=== PATIENT | female | born 2000 | race Hispanic/Latino ===

== ENCOUNTER 2020-02-08 16:59 | Emergency (ER) | payer BC, OTHER ==
--- OUTSIDE RECORDS SUMMARY | 2020-02-08 17:02 | XMS REPORT | Continuity of Care Document ---
:[address] [facility] t Address [address] [place] [address] Dr. Leal [address] [place] [id number] Care Team Providers Name Role Phone Unavailable Unavailable Unavailable Payers Payer Name Policy Type Policy Number Effective Date Expiration Date S ource Problems This patient has no known problems. Allergies, Adverse Reactions, Alerts This patient has no known allergies or adverse reactions. Medications This patient has no known medications. Procedures This patient has no known procedures. Results This patient has no known results.
[2020-02-08 18:46] LABS: Absolute Lymphocytes (CBC) 1.7 K/uL (0.7-4.9); Hematocrit 35.9 % (36.0-45.0); Lymphocytes % 19.6 % (15.3-44.8); MPV 11.6 fL (7.6-11.3); RBC Red Blood Cell Count 4.67 M/uL (3.86-4.86)
--- NOTE | 2020-02-08 19:13 | RAD REPORT ---
EXAM DESCRIPTION: US - Transvaginal OB - 02/08/2020 7:00 pm CLINICAL HISTORY: vaginal bleeding, pelvic pain COMPARISON: OB Limited dated 01/06/2017 FINDINGS: No IUP is identified within a normal size uterus. Endometrial stripe appears thickened linda suring up to 13 mm. The maternal adnexa and ovaries are within normal limits. Normal Doppler blood flow was demonstrated to both ovaries. IMPRESSION: No IUP is identified. In the setting of positive HCG level, this would be compatible wit h of unknown location. Serial HCG levels and follow-up pelvic sonography would be recommend ed in 7-10 days.
[2020-02-08 19:33] LABS: BUN Blood Urea Nitrogen 8 mg/dL (7-18); Bicarbonate 23 mmol/L (21-32); Glucose Level 82 mg/dL (74-106); HCG, Quantitative 21707 mIU/mL (1-3); Potassium 3.6 mmol/L (3.5-5.1); Sodium Level 140 mmol/L (136-145)
--- NOTE | 2020-02-08 19:48 | ER ---
Nurse's Notes [facility] Name: Franck Dominguez Age: 20 yrs Sex: Female : 2000 Arrival Date: 02/08/2020 Time: 17:06 Bed 13 Private MD: Diagnosis: Threatened Presentation: 02/07 17:15 Chief complaint: Patient states: 7 wk . Heavy vaginal bleed with clots <1 hr ca1 ago. Spotting since last night. Abdominal cramps. Coronavirus screen: Patient denies a cough. Patient denies shortness of breath or difficulty breathing. Patient denies measured and/or subjective temperature greater than 100.4F prior to today's visit. Patient denies travel on a cruise ship or to a country the [facility] currently lists as an affected area. Patient denies contact with known and/or suspected case of COVID-19. Proceed with normal triage. Ebola Screen: Patient negative for fever greater than or equal to 101.5 degrees Fahrenheit, and additional compatible Ebola Virus Disease symptoms Patient denies exposure to infectious person. Patient denies travel to an Ebola-affected area in the 21 days before illness onset. No symptoms or risks identified at this time. Initial Sepsis Screen: Does the patient meet any 2 criteria? No. Patient's initial sepsis screen is negative. Does the patient have a suspected source of infection? No. Patient's initial sepsis screen is negative. Risk Assessment: Do you want to hurt yourself or someone else? Patient reports no desire to harm self or others. Onset of symptoms was February 08, 2020. 17:15 Method Of Arrival: Ambulatory ca1 17:15 Acuity: FREDY 3 ca1 Triage Assessment: 17:48 General: Appears in no apparent distress. sad, tearful. Pain: Complains of pain in back ks7 and abdomen Pain currently is 4 out of 10 on a pain scale. Quality of pain is described as aching, crampy, Pain began 4 hours ago. : Reports vaginal bleeding that is bright red, with clots, pt is 7 weeks PG, thinks she is having a miscarriage. 20:09 General: Behavior is calm, cooperative. 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 - Social history:: Smoking status: Patient denies any tobacco usage or history of. Screenin:50 Abuse screen: Denies threats or abuse. Denies injuries from another. Nutritional ks7 screening: No deficits noted. Tuberculosis screening: No symptoms or risk factors identified. Fall Risk None identified. Assessment: 17:50 Obstetrical Assessment: Patient reports abdominal cramping, back pain, heavy bleeding ks7 this AM. thinks she is having miscarriage. Vital Signs: 17:15 BP 136 / 84; Pulse 89; Resp 18 S; Temp 98.1(TE); Pulse Ox 100% on R/A; Weight 75.3 kg ca1 (R); Height 5 ft. 1 in. (154.94 cm) (R); Pain 3/10; 18:39 BP 123 / 78; Pulse 80; Resp 16; Temp 98(TE); Pulse Ox 100% on R/A; Pain 4/10; ks7 19:23 BP 131 / 68; Pulse 78; Resp 18; Temp 98.2(TE); Pulse Ox 98% on R/A; Pain 3/10; ks7 20:07 Pulse Ox 99% ; Pain 0/10; ks7 20:08 BP 114 / 80; Pulse 72; Resp 18; Temp 98.7(TE); Pulse Ox 99% ; Pain 0/10; ks7 17:15 Body Mass Index 31.37 (75.30 kg, 154.94 cm) ca1 Vitals: 20:09 Heart Tones 0. ks7 ED Course: 17:06 Patient arrived in ED. mr 17:18 Triage completed. ca1 17:19 Arm band placed on right wrist. [facility] 17:28 Chuy Kenny PA is PHCP. [facility] 17:28 James Patel MD is Attending Physician. [facility] 17:40 Idalia Christy, KOMAL is Primary Nurse. ks7 17:50 Patient has correct armband on for positive identification. Placed in gown. Bed in low ks7 position. Call light in reach. Side rails up X2. 17:50 No provider procedures requiring assistance completed. Patient did not have IV access ks7 during this emergency room visit. 18:33 Quantitative Hcg Sent. ks7 18:33 Abo/rh Typing Sent. ks7 18:34 Inserted saline lock: 20 gauge in left antecubital area, using aseptic technique. ks7 18:43 Quantitative Hcg Sent. ks7 18:43 Abo/rh Typing Sent. ks7 19:00 Transvaginal OB In Process Unspecified. EDMS 19:23 Urine --Ancillary (enter results) Sent. ks7 19:23 Urine Dipstick--Ancillary (enter results) Sent. ks7 20:06 No apparent distress. ks7 20:06 IV discontinued, intact, bleeding controlled, No redness/swelling at site. Pressure ks7 dressing applied. Administered Medications: 20:00 Drug: morphine 4 mg Route: IVP; Site: left antecubital; ks7 20:07 Follow up: Pulse Ox 99% ; Pain 0/10 Adult ks7 Point of Care Testing: Urine : 18:00 hCG Reading: Positive; Control Reading: Positive; ks7 Outcome: 19:46 Discharge ordered by . luis felipe 20:09 Discharged to home ambulatory, with family. ks7 20:09 Condition: stable 20:09 Discharge instructions given to patient, Instructed on discharge instructions, follow up and referral plans. Demonstrated understanding of instructions, follow-up care. 20:10 Patient left the ED. ks7 Signatures: Dispatcher [employer] EDMS Chuy Kenny PA PA jmm Rivera, Mary mr Joann Peguero RN RN ca1 Songcuan, Kathleen, RN RN ks7
--- NOTE | 2020-02-08 19:48 | EDPHYS ---
Physician Documentation [facility] Name: Franck Dominguez Age: 20 yrs Sex: Female : 2000 Arrival Date: 02/08/2020 Time: 17:06 Bed 13 Private MD: ED Physician James Patel HPI: 02/07 17:30 This 20 yrs old Female presents to ER via Ambulatory with complaints of jmm Vaginal Bleeding, + Preg <12wks. 17:30 The estimated gestational age is 7 weeks. course: care: at a clinic. jmm This is a 20 year old female that presents to the ED with complaints of vaginal bleeding beginning yesterday worsening today. Patient states having a confirmed IUP 2 weeks prior. . 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 - Social history:: Smoking status: Patient denies any tobacco usage or history of. ROS: 17:30 Constitutional: Negative for fever, chills, and weight loss, Cardiovascular: Negative jmm for chest pain, palpitations, and edema, Respiratory: Negative for shortness of breath, cough, wheezing, and pleuritic chest pain, Abdomen/GI: Negative for abdominal pain, nausea, vomiting, diarrhea, and constipation. 17:30 : Positive for vaginal bleeding. 17:30 All other systems are negative. Exam: 17:30 Constitutional: This is a well developed, well nourished patient who is awake, alert, jmm and in no acute distress. Head/Face: atraumatic. Eyes: EOMI, no conjunctival erythema appreciated ENT: Moist Mucus Membranes Neck: Trachea midline, Supple Chest/axilla: Normal chest wall appearance and motion. Cardiovascular: Regular rate and rhythm. No edema appreciated Respiratory: Normal respirations, no respiratory distress appreciated Abdomen/GI: Non distended, soft Back: Normal ROM Skin: General appearance color normal MS/ Extremity: Moves all extremities, no obvious deformities appreciated, no edema noted to the lower extremities Neuro: Awake and alert, normal gait Psych: Behavior is normal, Mood is normal, Patient is cooperative and pleasant Vital Signs: 17:15 BP 136 / 84; Pulse 89; Resp 18 S; Temp 98.1(TE); Pulse Ox 100% on R/A; Weight 75.3 kg ca1 (R); Height 5 ft. 1 in. (154.94 cm) (R); Pain 3/10; 18:39 BP 123 / 78; Pulse 80; Resp 16; Temp 98(TE); Pulse Ox 100% on R/A; Pain 4/10; ks7 19:23 BP 131 / 68; Pulse 78; Resp 18; Temp 98.2(TE); Pulse Ox 98% on R/A; Pain 3/10; ks7 20:07 Pulse Ox 99% ; Pain 0/10; ks7 20:08 BP 114 / 80; Pulse 72; Resp 18; Temp 98.7(TE); Pulse Ox 99% ; Pain 0/10; ks7 17:15 Body Mass Index 31.37 (75.30 kg, 154.94 cm) ca1 MDM: 18:25 Patient medically screened. [facility] 19:45 Data reviewed: vital signs, nurses notes. Counseling: I had a detailed discussion with luis felipe the patient and/or guardian regarding: the historical points, exam findings, and any diagnostic results supporting the discharge/admit diagnosis, radiology results, the need for outpatient follow up, to return to the emergency department if symptoms worsen or persist or if there are any questions or concerns that arise at home. ED course: No IUP identified. Most likely spontaneous . Patient is advised to follow up with OBGYN for further evaluation and otherwise given strict return precautions. Patient understood and agrees with the plan of care. . 02/07 17:29 Order name: Quantitative Hcg; Complete Time: 19:34 [facility] 02/07 17:29 Order name: Abo/rh Typing; Complete Time: 19:27 [facility] 02/07 17:29 Order name: Basic Metabolic Panel; Complete Time: 19:34 [facility] 02/07 17:29 Order name: CBC with Diff; Complete Time: 19:08 [facility] 02/07 18:52 Order name: Urine Dipstick--Ancillary (enter results) bd 02/07 18:52 Order name: Urine --Ancillary (enter results) 02/07 17:29 Order name: Urine Test (obtain specimen); Complete Time: 18:32 [facility] 02/07 17:29 Order name: IV Saline Lock; Complete Time: 18:33 [facility] 02/07 17:29 Order name: Labs collected and sent; Complete Time: 18:33 [facility] 02/07 17:29 Order name: NPO; Complete Time: 18:33 [facility] 02/07 17:29 Order name: Urine Dipstick-Ancillary (obtain specimen); Complete Time: 18:33 [facility] 02/07 19:00 Order name: Transvaginal OB; Complete Time: 19:27 EDMS Administered Medications: 20:00 Drug: morphine 4 mg Route: IVP; Site: left antecubital; ks7 20:07 Follow up: Pulse Ox 99% ; Pain 0/10 Adult ks7 Point of Care Testing: Urine : 18:00 hCG Reading: Positive; Control Reading: Positive; ks7 Disposition: 02/08 08:30 Co-signature as Attending Physician, James Patel MD. rn Disposition: 02/08/20 19:46 Discharged to Home. Impression: Threatened . - Condition is Stable. - Discharge Instructions: Threatened Miscarriage, Vaginal Bleeding During , First Trimester, Pelvic Rest. - Medication Reconciliation Form, Thank You Letter, Antibiotic Education, Prescription Opioid Use form. - Follow up: Private Physician; When: 1 - 2 days; Reason: Recheck today's complaints, Continuance of care, Repeat Beta-HCG (48 Hours), Re-evaluation by your physician. Signatures: Dispatcher [employer] [facility] Chuy Kenny PA PA James Enamorado MD MD rn Acob, Joann RN Idalia Durand RN RN ks7 Corrections: (The following items were deleted from the chart) 02/07 19:00 17:29 OB Limited+US.RAD.BRZ ordered. [facility] 20:10 19:46 02/08/2020 19:46 Discharged to Home. Impression: Threatened . Condition ks7 is Stable. Forms are Medication Reconciliation Form, Thank You Letter, Antibiotic Education, Prescription Opioid Use. Follow up: Private Physician; When: 1 - 2 days; Reason: Recheck today's complaints, Continuance of care, Repeat Beta-HCG (48 Hours), Re-evaluation by your physician. luis felipe
[2020-02-08] MEDS ORDERED: MORPHINE 4 MG/ML SYR ONE (20:06)
[2020-02-08 20:27] LABS: Urine Blood 3+ (NEG); Urine Glucose NEGATIVE (NEG); Urine Protein 2+ (NEG); Urine Specific Gravity >1.030 (1.005-1.030); Urine pH 5.5 (5.0-7.0)
[2020-02-09 11:20] VITALS: O2SAT 99
[2020-02-09 11:22] VITALS: BP 114/80; TEMP 98.7
== END 2020-02-08 20:10 | disposition home or self-care (01) ==
LOC: ER 16:59
DX: O20.0 Threatened abortion (principal); Z3A.01 Less than 8 weeks gestation of pregnancy
CPT/HCPCS: 36415; 76817; 80048; 81003; 81025; 84702; 85025; 86900; 86901; 96374; 99284

== ENCOUNTER 2022-06-28 09:32 | Emergency (ER) | payer BC ==
--- OUTSIDE RECORDS SUMMARY | 2022-06-28 09:35 | XMS REPORT | Continuity of Care Document ---
:2000 Author Organization [facility] t Address [address] Leal [address] [place] [address] Care Team Providers Name Role Phone [place] Turner Attending Clinician Unavailable Payers Payer Name Policy Type Policy Number Effective Date Expiration Date S ource Problems This patient has no known problems. Allergies, Adverse Reactions, Alerts This patient has no known allergies or adverse reactions. Medications This patient has no known medications. Procedures This patient has no known procedures. Encounters Start End Encounter Admission Attending Care Care Encounter Source Date/Time Date/Time Type Type Clinicians Facility Department ID 2020-02-09 2020-02-09 Outpatient CONY Turner RADI [id number] [facility] 11:00:00 11:00:00 [place] 40 [facility] s [facility] Results This patient has no known results.
[2022-06-28 12:34] LABS: Absolute Lymphocytes (CBC) 1.4 K/uL (0.7-4.9); Hematocrit 39.3 % (36.0-45.0); Lymphocytes % 25.5 % (15.3-44.8); MCV 82.8 fL (80-100); MPV 10.1 fL (7.6-11.3); RBC Red Blood Cell Count 4.74 M/uL (3.86-4.86)
--- NOTE | 2022-06-28 12:39 | RAD REPORT ---
EXAM DESCRIPTION: US - Transvaginal OB - 06/28/2022 11:34 am CLINICAL HISTORY: VAGINAL BLEEDING COMPARISON: Transvaginal OB dated 02/08/2020 FINDINGS: Endovaginal sonography exam was performed and shows normal size uterus with no myometrial mass. Endometrium measures up to 12-14 mm in thickness. The endometrium- myometrium interface is pres erved. There is no gestational sac, sac remnant or other focal finding of the endometrial cavity. Normal sized ovaries are identified. Doppler evaluation shows normal blood flow in the ovarian stroma . No dominant solid or cystic ovarian or adnexal abnormality. No abnormal fluid or blood in the cul de sac. IMPRESSION: No gestational sac, sac remnant or other focal endometrial finding. Endometrium measures up to 12-14 mm in thickness. No ovarian or adnexal abnormalities found.
[2022-06-28 12:49] LABS: Potassium 3.5 mmol/L (3.5-5.1)
[2022-06-28 14:08] LABS: Urine Blood 3+ (Negative); Urine Glucose Negative (Negative); Urine Protein 2+ (Negative)
[2022-06-28 14:32] LABS: Urine RBC >50 /HPF (None Seen)
--- NOTE | 2022-06-28 14:59 | ER ---
Nurse's Notes [facility] Name: Franck Dominguez Age: 22 yrs Sex: Female : 2000 Arrival Date: 06/28/2022 Time: 09:38 Bed 12 Private MD: Diagnosis: Missed Presentation: 06/28 10:15 Chief complaint: Patient states: Light vaginal bleeding that began last night and now ss feels like more of the beginning of a period with light cramping. Pt reports she is approximately 7 weeks . Coronavirus screen: Client denies travel out of the [place] in the last 14 days. Ebola Screen: Patient denies exposure to infectious person. Patient denies travel to an Ebola-affected area in the 21 days before illness onset. Initial Sepsis Screen: Does the patient meet any 2 criteria? No. Patient's initial sepsis screen is negative. Does the patient have a suspected source of infection? No. Patient's initial sepsis screen is negative. Risk Assessment: Do you want to hurt yourself or someone else? Patient reports no desire to harm self or others. Onset of symptoms was June 27, 2022. 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 - Social history:: Smoking status: Patient denies any tobacco usage or history of. - Family history:: not pertinent. Screenin:15 Abuse screen: Denies threats or abuse. Denies injuries from another. Nutritional kb3 screening: No deficits noted. Tuberculosis screening: No symptoms or risk factors identified. Fall Risk None identified. Assessment: 12:15 Obstetrical Assessment: General assessment: awake and alert, skin warm and dry, kb3 respirations even and unlabored. Reassessment: Patient appears in no apparent distress at this time. No changes from previously documented assessment. General: Appears in no apparent distress. comfortable, Behavior is calm, cooperative, Received care of pt from the [facility]. Pt reporting that she is approximately 6-7 weeks based on the date of her last menstrual cycle and began experiencing bright red blood when she wipes with mild lower abdominal cramping yesterday evening. A0. 12:15 Pain: Complains of pain in suprapubic area, right lower quadrant and left lower kb3 quadrant Pain does not radiate. Pain currently is 3 out of 10 on a pain scale. Quality of pain is described as crampy, Pain began 1 day ago. : Reports cramping, vaginal bleeding that is Denies burning with urination, discharge, inability to void. Vital Signs: 10:15 BP 131 / 93; Pulse 82; Resp 14; Temp 97.4(TE); Pulse Ox 100% on R/A; Height 5 ft. 1 in. ss (154.94 cm); Pain /10; 12:15 BP 123 / 91; Pulse 78; Resp 18; Pulse Ox 99% ; kb3 15:15 BP 115 / 78; Pulse 82; Resp 18; Pulse Ox 99% ; kb3 Vitals: 12:15 Heart Tones deferred. kb3 ED Course: 09:38 Patient arrived in ED. as 09:51 Noe Quevedo MD is Attending Physician. rt 10:17 Triage completed. ss 10:18 Arm band placed on right wrist. ss 11:19 US Transvaginal Ob In Process Unspecified. EDMS 12:15 Patient has correct armband on for positive identification. Bed in low position. Call kb3 light in reach. Warm blanket given. 12:15 No provider procedures requiring assistance completed. Inserted saline lock: 22 gauge kb3 in right antecubital area, using aseptic technique. Blood collected. 12:26 Abo/rh Typing Sent. kb3 12:26 Basic Metabolic Panel Sent. kb3 12:26 CBC with Diff Sent. kb3 12:26 Quantitative Hcg Sent. kb3 14:10 Urine collected: clean catch specimen, blood tinged. tm3 15:02 Anuradha García, RN is Primary Nurse. kb3 15:15 IV discontinued, intact, bleeding controlled, No redness/swelling at site. Pressure kb3 dressing applied. Administered Medications: No medications were administered Medication: 12:15 VIS not applicable for this client. kb3 Point of Care Testing: Urine : 14:30 hCG Reading: Positive; Control Reading: Positive; kb3 Outcome: 14:58 Discharge ordered by . rt 15:15 Discharged to home ambulatory, with family. kb3 15:15 Condition: stable kb3 15:15 Discharge instructions given to patient, family, Instructed on discharge instructions, follow up and referral plans. medication usage, Demonstrated understanding of instructions, follow-up care, medications. 15:40 Patient left the ED. kb3 Signatures: Dispatcher [employer] EDSC Durga Eddie tm3 Anu Dominguez Shelby, KOMAL RN ss Anuradha García RN RN kb3 Noe Quevedo MD MD rt Corrections: (The following items were deleted from the chart) 10:18 10:18 PMHx: None; ss ss
--- NOTE | 2022-06-28 14:59 | EDPHYS ---
Physician Documentation [facility] Name: Franck Dominguez Age: 22 yrs Sex: Female : 2000 Arrival Date: 06/28/2022 Time: 09:38 Bed 12 Private MD: ED Physician Noe Quevedo HPI: 06/28 10:28 This 22 yrs old Female presents to ER via Ambulatory with complaints of rt Vaginal Bleeding, + Preg <12wks. 10:28 The patient presents to the emergency department with vaginal bleeding, that is light, rt with no clots. The estimated gestational age is 7 weeks. The patient has experienced a previous episode. Presents to the ED with vaginal bleeding starting yesterday. Initially started spotting but has been increasing to about the level for period. The patient states that she is about 7 weeks , has not had a confirmatory ultrasound. Reports mild lower abdominal cramping but denies other acute complaints at this time, symptoms are moderate severity, no other aggravating or alleviating factors.. 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 - Social history:: Smoking status: Patient denies any tobacco usage or history of. - Family history:: not pertinent. ROS: 15:07 : Positive for vaginal bleeding, Negative for burning with urination. rt 19:13 Constitutional: Negative for fever, chills, and weight loss, Eyes: Negative for injury, rt pain, redness, and discharge, ENT: Negative for injury, pain, and discharge, Neck: Negative for injury, pain, and swelling, Cardiovascular: Negative for chest pain, palpitations, and edema, Respiratory: Negative for shortness of breath, cough, wheezing, and pleuritic chest pain, Abdomen/GI: Negative for abdominal pain, nausea, vomiting, diarrhea, and constipation, MS/Extremity: Negative for injury and deformity, Skin: Negative for injury, rash, and discoloration, Neuro: Negative for headache, weakness, numbness, tingling, and seizure, Psych: Negative for depression, anxiety, suicide ideation, homicidal ideation, and hallucinations. Exam: 19:13 Constitutional: This is a well developed, well nourished patient who is awake, alert, rt and in no acute distress. Head/Face: Normocephalic, atraumatic. Eyes: Pupils equal round and reactive to light, extra-ocular motions intact. Lids and lashes normal. Conjunctiva and sclera are non-icteric and not injected. Cornea within normal limits. Periorbital areas with no swelling, redness, or edema. ENT: Nares patent. No nasal discharge, no septal abnormalities noted. Tympanic membranes are normal and external auditory canals are clear. Oropharynx with no redness, swelling, or masses, exudates, or evidence of obstruction, uvula midline. Mucous membranes moist. Neck: Trachea midline, no thyromegaly or masses palpated, and no cervical lymphadenopathy. Supple, full range of motion without nuchal rigidity, or vertebral point tenderness. No Meningismus. Chest/axilla: Normal chest wall appearance and motion. Nontender with no deformity. No lesions are appreciated. Cardiovascular: Regular rate and rhythm with a normal S1 and S2. No gallops, murmurs, or rubs. Normal PMI, no JVD. No pulse deficits. Respiratory: Lungs have equal breath sounds bilaterally, clear to auscultation and percussion. No rales, rhonchi or wheezes noted. No increased work of breathing, no retractions or nasal flaring. Abdomen/GI: Soft, non-tender, with normal bowel sounds. No distension or tympany. No guarding or rebound. No evidence of tenderness throughout. Skin: Warm, dry with normal turgor. Normal color with no rashes, no lesions, and no evidence of cellulitis. MS/ Extremity: Pulses equal, no cyanosis. Neurovascular intact. Full, normal range of motion. Neuro: Awake and alert, GCS 15, oriented to person, place, time, and situation. Cranial nerves II-XII grossly intact. Motor strength 5/5 in all extremities. Sensory grossly intact. Cerebellar exam normal. Normal gait. Psych: Awake, alert, with orientation to person, place and time. Behavior, mood, and affect are within normal limits. Vital Signs: 10:15 BP 131 / 93; Pulse 82; Resp 14; Temp 97.4(TE); Pulse Ox 100% on R/A; Height 5 ft. 1 in. ss (154.94 cm); Pain /10; 12:15 BP 123 / 91; Pulse 78; Resp 18; Pulse Ox 99% ; kb3 15:15 BP 115 / 78; Pulse 82; Resp 18; Pulse Ox 99% ; kb3 MDM: 10:19 Patient medically screened. rt 19:13 Differential diagnosis: threatened Ab, complete Ab, ectopic . Data reviewed: rt vital signs, nurses notes, old medical records, lab test result(s), EKG, radiologic studies. ED course: Patient presents to the ED with first trimester vaginal bleeding. The symptoms do seem to be improving in the ED. There is no ectopic identified, beta-hCG is above discriminatory zone. Patient was informed of these findings as well as the need for close outpatient follow-up for serial hCGs. No further interventions are needed at this time, return precautions were discussed. 06/28 10:20 Order name: Abo/rh Typing; Complete Time: 15:07 rt 06/28 10:20 Order name: Basic Metabolic Panel; Complete Time: 13:21 rt 06/28 10:20 Order name: CBC with Diff; Complete Time: 12:47 rt 06/28 10:20 Order name: Quantitative Hcg; Complete Time: 13:21 rt 06/28 10:20 Order name: UA MICROSCOPIC; Complete Time: 14:52 rt 06/28 14:08 Order name: Urine Dipstick-Ancillary; Complete Time: 14:28 EDMS 06/28 10:20 Order name: US Transvaginal Ob; Complete Time: 12:47 rt 06/28 10:20 Order name: IV Saline Lock; Complete Time: 12:25 rt 06/28 10:20 Order name: Labs collected and sent; Complete Time: 12:25 rt 06/28 10:20 Order name: NPO; Complete Time: 12:26 rt 06/28 14:14 Order name: Urine --Ancillary (enter results); Complete Time: 14:28 eb 06/28 14:51 Order name: Urine Culture EDMS Administered Medications: No medications were administered Point of Care Testing: Urine : 14:30 hCG Reading: Positive; Control Reading: Positive; kb3 Disposition Summary: 06/28/22 14:58 Discharge Ordered Location: Home rt Problem: new rt Symptoms: are unchanged rt Condition: Stable rt Diagnosis - Missed rt Followup: rt - With: Private Physician - When: 48 Hours - Reason: Repeat Beta-HCG (48 Hours) Discharge Instructions: - Discharge Summary Sheet rt - Miscarriage rt Forms: - Medication Reconciliation Form rt - Thank You Letter rt - Antibiotic Education rt - Prescription Opioid Use rt Prescriptions: - Macrobid 100 mg Oral Capsule - take 1 capsule by ORAL route every 12 hours for 7 days; 14 capsule; Refills: 0, rt Product Selection Permitted Signatures: Dispatcher [employer] Megan Oswald RN RN ss Noe Quevedo MD MD rt Corrections: (The following items were deleted from the chart) 10:18 10:18 PMHx: None; ss
[2022-06-28 17:58] VITALS: TEMP 97.4
[2022-06-28 18:04] VITALS: O2SAT 99
[2022-06-28 18:09] VITALS: BP 115/78
== END 2022-06-28 15:40 | disposition home or self-care (01) ==
LOC: ER 09:32
DX: O02.1 Missed abortion (principal)
CPT/HCPCS: 36415; 76817; 80048; 81003; 81015; 81025; 84702; 85025; 86900; 86901; 87086; 87088; 99284